=== PATIENT | female | born 1955 | race African-American/Black ===

== ENCOUNTER → 2017-08-25 | Outpatient (CLI) | payer BC ==
[~2017-08-25] MED LIST: CHARCOAL200 MG PO; MSM1000 MG PO; VITAMIN B-12 51 EACH SL; ZESTORETIC 10-1 EAC1 PO
== END | disposition home or self-care (01) ==
LOC: CDC 15:51
DX: Z01.810 Encounter for preprocedural cardiovascular examination (principal); L72.3 Sebaceous cyst
CPT/HCPCS: 93000

== ENCOUNTER 2017-08-29 10:43 | Day surgery (SDC) | payer BC ==
[~2017-08-29] VITALS: Ht 160 cm; Wt 70.1 kg
[2017-08-29 11:33] VITALS: BP 159/70
[2017-08-29] MEDS ORDERED: ULTRAM50 MG PO (14:33)
[2017-08-29 15:00] VITALS: BP 136/62
[2017-08-29 15:55] VITALS: BP 126/58
== END 2017-08-29 15:55 | disposition home or self-care (01) ==
LOC: SDC
PROC: 0JB50ZZ Excision of Left Neck Subcutaneous Tissue and Fascia, Open Approach (ICD-10-PCS; principal; 2017-08-29)
DX: L72.3 Sebaceous cyst (principal); L08.9 Local infection of the skin and subcutaneous tissue, unspecified; M54.2 Cervicalgia; E78.00 Pure hypercholesterolemia, unspecified; I10 Essential (primary) hypertension
CPT/HCPCS: J0690; J1170; J1885; J2250; J2405; S0020

== ENCOUNTER 2017-10-17 06:57 | Day surgery (SDC) | payer BC ==
[~2017-10-17] VITALS: Ht 160 cm; Wt 70.0 kg
[~2017-10-17 06:57] MED LIST changes: +ULTRAM50 MG PO
[2017-10-17 07:38] VITALS: BP 129/70
[2017-10-17 10:40] VITALS: BP 157/75
[2017-10-17 11:30] VITALS: BP 161/72
== END 2017-10-17 11:32 | disposition home or self-care (01) ==
LOC: SDC 06:57
PROC: 0HB4XZZ Excision of Neck Skin, External Approach (ICD-10-PCS; principal; 2017-10-17)
DX: L72.0 Epidermal cyst (principal); I10 Essential (primary) hypertension; E78.00 Pure hypercholesterolemia, unspecified; Z88.1 Allergy status to other antibiotic agents
CPT/HCPCS: 88304; J0690; J2250; J2405; J3010; S0020